=== PATIENT | male | born 1940 | race Caucasian/White ===

== ENCOUNTER 2020-11-28 05:14 | Day surgery (SDC) | payer MEDICARE, BC ==
[2020-11-26 10:49] LABS: COVID AG,FIA SOURCE NASOPHARYNGEAL
[~2020-11-28] VITALS: Ht 175.3 cm; Wt 72.0 kg
[2020-11-28] MEDS ORDERED: RINGERS SOLUTION,LACTATED 500 ML IV ONE ×2 (05:17→06:00)
[2020-11-28] MEDS ORDERED: KETOROLAC TROMETHAMINE 0.5% 5 ML OPHTHALMIC SOLUTION ONE (05:17)
[2020-11-28] MEDS ORDERED: TROPICAMIDE 1% 2 ML OPHTHALMIC SOLUTION ONE (05:18)
[2020-11-28] MEDS ORDERED: MOXIFLOXACIN HCL 0.5% 3 ML OPHTHALMIC SOLUTION ONE (05:18)
[2020-11-28] MEDS ORDERED: PHENYLEPHRINE HCL 2.5% 2 ML OPHTHALMIC SOLUTION ONE (05:18)
[2020-11-28] MEDS ORDERED: APIX5TAB PO (05:34)
[2020-11-28] MEDS ORDERED: ATOR40TA71 PO (05:34)
[2020-11-28] MEDS ORDERED: EMPA10TA PO (05:34)
[2020-11-28] MEDS ORDERED: RANO500T6 PO (05:34)
[2020-11-28] MEDS ORDERED: GABA-1181 PO (05:34)
[2020-11-28] MEDS: KETOROLAC TROMETHAMINE 0.5% 5 ML OPHTHALMIC SOLUTION OS SCH ×3 (05:54→06:06)
[2020-11-28] MEDS: TROPICAMIDE 1% 2 ML OPHTHALMIC SOLUTION OS SCH ×3 (05:54→06:06)
[2020-11-28] MEDS: MOXIFLOXACIN HCL 0.5% 3 ML OPHTHALMIC SOLUTION OS SCH ×3 (05:54→06:06)
[2020-11-28] MEDS: PHENYLEPHRINE HCL 2.5% 2 ML OPHTHALMIC SOLUTION OS SCH ×3 (05:54→06:06)
[2020-11-28 06:04] LABS: GLUCOMETER DEV NAME(LOC) SDS.; GLUCOSE,POINT OF CARE 126 MG/DL (70-110)
[2020-11-28] MEDS ORDERED: MIDAZOLAM HCL 2 MG/2 ML VIAL IVP ONE (12:00)
[2020-11-28] MEDS ORDERED: FentaNYL CITRATE PF 100 MCG/2 ML VIAL IVP ONE (12:00)
== END 2020-11-28 09:40 | disposition home or self-care (01) ==
LOC: SURGERY 05:14
PROVIDERS: ATTEND Ophthalmology
DX: E11.36 Type 2 diabetes mellitus with diabetic cataract (principal); H25.12 Age-related nuclear cataract, left eye; I10 Essential (primary) hypertension; I25.10 Atherosclerotic heart disease of native coronary artery without angina pectoris; G89.29 Other chronic pain; Z79.899 Other long term (current) drug therapy; Z95.5 Presence of coronary angioplasty implant and graft; Z98.890 Other specified postprocedural states; Z79.82 Long term (current) use of aspirin
CPT/HCPCS: 66984; 82962; 87426; 93005; C9803; J2250; J3010; J7120; V2632